=== PATIENT | female | born 1945 | race Caucasian/White ===

== ENCOUNTER 2024-01-02 14:05 | Outpatient (CLI) | payer MEDICARE, OTHER, SELFPAY ==
--- NOTE | ~2024-01-02 | DEXA_ITS ---
Bone Density Report Name: LILIA WINCHESTER Age: 78 Sex: Female Ethnicity: White Date of : 1945 Indication: postmenopausal; screening for osteoporosis; height loss; hysterectomy; Referring Provider: GARDENIA ANDREWS Study: Bone densitometry was performed. Exam Date: January 02, 2024 Accession number: [id number] Bone Density: Region BMD T-score Z-score Classification AP Spine(L2, L3, L4) 0.988 -0.8 1.9 Normal Femoral Neck (Left) 0.830 -0.2 2.1 Normal Total Hip (Left) 0.963 0.2 2.2 Normal Femoral Neck (Right) 0.764 -0.8 1.5 Normal Total Hip (Right) 0.950 0.1 2.1 Normal Total Hip Mean 0.956 0.2 2.2 Normal World Health Organization criteria for BMD impression classify patients as: Normal (T-score at or above -1.0), Osteopenia (T-score between -1.0 and -2.5), or Osteoporosis (T-score at or below -2.5). 10-year Fracture Risk: FRAX not reported because: All T-scores for Spine Total, Hip Total, Femoral Neck at or above -1.0 Clinical Information Provided by Patient: Has the following medical conditions: Hysterectomy Patient maximum height was 63 No regular weight bearing exercise Drinks caffeinated beverages Onset of menses at age 14 Number of children 4 Impression: The patient has normal bone mass. Discussion: BONE DENSITY IS ABOVE THE MINIMUM DESIRABLE LEVEL AT ALL SKELETAL SITES TESTED. This patient?s bone mineral density is above the minimum desirable level (T-score -1.0 or better) at all sites measured. The patient should follow a healthful lifestyle (good nutrition with adequate calcium and vitamin D, and appropriate weight-bearing exercise). Follow-Up: Consider repeating this study in 5 years or sooner if there is some new clinical indication. Reported by: DEBBIE on 01/02/2024 2:36:00 PM. Reviewed, dictated and finalized at location [facility]
== END 2024-01-02 14:06 | disposition home or self-care (01) ==
PROVIDERS: PCP Student in an Organized Health Care Education/Training Program; Visit Provider Internal Medicine Endocrinology, Diabetes & Metabolism
DX: E83.52 Hypercalcemia (principal); R29.890 Loss of height; Z78.0 Asymptomatic menopausal state; Z90.710 Acquired absence of both cervix and uterus; Z13.820 Encounter for screening for osteoporosis
CPT/HCPCS: 77080